=== PATIENT | female | born 1940 | race Caucasian/White ===

== ENCOUNTER 2016-07-03 12:45 | Emergency (ER) | payer OTHER ==
[~2016-07-03] VITALS: Ht 154.9 cm; Wt 93.0 kg
--- NOTE | 2016-07-03 14:23 | ED UPPER/LOWER EXTREMITY COMPL ---
History of Present Illness General Chief Complaint: Shoulder Injury Stated Complaint: RIGHT SHOULDER DISLOCATION Source: patient, family, old records Exam Limitations: no limitations Vital Signs & Intake/Output Vital Signs & Intake/Output Vital Signs Date Time Temp Pulse Resp B/P Pulse O2 O2 Flow FiO2 Ox Delivery Rate 07/03 1408 98 16 158/72 100 Nasal 2.0L Cannula 07/03 1338 95 16 172/77 97 Nasal 2.0L Cannula 07/03 1310 Room Air 07/03 1255 98.0 113 18 186/89 97 Room Air Allergies Uncoded Allergies: PCN (Intermediate, RASH 07/03/16) Triage Note: C/O R SHOULDER PAIN SINCE LAST PM, FELL LAST OM, TRIPPED OVER CLOTHES. SENT BY [facility], HAS CD WITH HER. HAS R SHOULDER DISLOCTION. Triage Nurses Notes Reviewed? yes Onset: Evening Duration: hour(s):, constant, continues in ED Timing: recent history Severity: severe Pain/Injury Location: Right: Shoulder. Method of Injury: direct blow, fall Modifying Factors: Improves With: immobilization, rest. Worsens With: movement. Associated Symptoms: GCS 15 since, stiffness LMP (ages 10-50): post menopausal : No Patient currently breastfeeds: No HPI: The evening prior to admission patient tripped over she from [facility] and fell onto her right shoulder. She complains of moderate to severe sharp pain nonradiating with limited range of motion. She denies other injury fever chills nausea vomiting diarrhea abdominal pain chest pain shortness of breath headache dysuria rash bleeding change in sensory function. Past History Travel History Traveled to [place] past 21 day No Medical History Any Pertinent Medical History? see below for history Cardiovascular: hypertension Cancer(s): SKIN CANCER Surgical History Surgical History: non-contributory Psychosocial History What is your primary language Romansh Tobacco Use: Never used ETOH Use: occasional use Family History Hx Contributory? No Review of Systems Review of Systems Constitutional: Reports: no symptoms. EENTM: Reports: no symptoms. Respiratory: Reports: no symptoms. Cardiovascular: Reports: no symptoms. Gastrointestinal/Abdominal: Reports: no symptoms. Genitourinary: Reports: no symptoms. Musculoskeletal: Reports: see HPI, joint pain. Skin: Reports: no symptoms. Neurological/Psychological: Reports: no symptoms. Hematologic/Endocrine: Reports: no symptoms. Immunological: Reports: no symptoms. All Other Systems: Reviewed and Negative Physical Exam Physical Exam General Appearance: well developed/nourished, alert, awake, anxious, mild distress, obese Head: atraumatic Eyes: Bilateral: PERRL, EOMI. Ears, Nose, Throat: normal pharynx, normal ENT inspection, hearing grossly normal Neck: normal inspection, supple Cardiovascular/Respiratory: regular rate/rhythm Peripheral Pulses: 4+ carotid (R), 4+ carotid (L), 2+ radial (R), 2+ radial (L) Back: normal inspection Shoulder Left: normal range of motion, normal inspection Shoulder Right: tenderness, evidence of injury, soft tissue tenderness, limited range of motion Elbow Left: normal range of motion, normal inspection Elbow Right: normal range of motion, normal inspection Hand Left: normal inspection, normal range of motion Hand Right: normal inspection, normal range of motion Upper Extremity Reflexes: 2+: bicep (L), tricep (L). Leg Left: normal range of motion, normal inspection Leg Right: normal range of motion, normal inspection Hip Left: normal range of motion, normal inspection Hip Right: normal range of motion, normal inspection Knee Left: normal range of motion, normal inspection Knee Right: normal range of motion, normal inspection Foot Left: normal inspection, normal range of motion Foot Right: normal inspection, normal range of motion Lower Extremity Reflexes: 2+: knee (R), knee (L), ankle (R), ankle (L). Neurologic/Tendon: normal sensation, normal motor functions, no pulse deficit Skin: intact, normal color, warm/dry Lymphatic: no anterior cervical henny Progress Differential Diagnosis: contusion, dislocation, fracture Plan of Care: Orders Procedure Date/time Status XRY-SHOULDER COMPLETE-RIGHT 07/03 1329 Active Diagnostic Imaging: Viewed by Me: Radiology Read. Discussed w/RAD: Radiology Read. Radiology Impression: satisfactory reduction Departure Departure Time of Disposition: 1515 Disposition: HOME OR SELF CARE Condition: Stable Clinical Impression Primary Impression: Anterior dislocation of right shoulder Qualifiers: Encounter type: initial encounter Qualified Code: S43.014A - Anterior dislocation of right humerus, initial encounter Secondary Impressions: Fall at home Qualifiers: Encounter type: initial encounter Qualified Codes: W19.XXXA - Unspecified fall, initial encounter; Y92.099 - Unspecified place in other non- institutional residence as the place of occurrence of the external cause Referrals: PATIENT HAS NO PRIMARY CARE DR (PCP/Family) Departure Forms: Customer Survey General Discharge Information Procedures Splinting Location: right shoulder Manual Alignment Performed: Yes Pre-Made Type: shoulder immobilizer Splint Applied By: splint applied by me Pre-Proc Neuro Vasc Exam: normal Post-Proc Neuro Vasc Exam: normal Joint Reduction Joint Reduction Site: shoulder (R) Conscious Sedation: conscious sedation, performed by me Reduction Attempts: 1 Pre-Procedure NV Exam: Yes Post-Procedure NV Exam: Yes Post Joint Reduction Film: joint reduced Procedural Sedation Sedation Type: moderate Indication: shoulder reduction Prior Complications: none ASA Classification: P1 Airway: large tongue/teeth Mallampati Classification: Class 2 Preparation: plan explained to patient, hospital consent signed, oximetry during procedure, IV access obtained, suction immediately avail, monitor and storage bin tender used Sedation: versed, etomidate Complications During/After Procedure: none Post Sedation Score: see sedation record I personally performed: sedation, procedure Intra-Service Time: 30 minutes or less
--- NOTE | 2016-07-03 14:38 | RADIOLOGY REPORT ---
EXAMINATION: XR SHOULDER, RIGHT CLINICAL INFORMATION: Status post reduction COMPARISON: None TECHNIQUE: 2 view of the right shoulder. FINDINGS: Normal location here. The humeral head does ride high in this may be consistent with impingement syndrome. No convincing evidence for an underlying fracture. IMPRESSION: Normal location. Findings may be consistent with impingement syndrome as described. Degenerative changes superiorly. Normal location on this study
== END 2016-07-03 15:35 ==
LOC: ERH 12:45
DX: S43.014A Anterior dislocation of right humerus, initial encounter (principal); W18.09XA Striking against other object with subsequent fall, initial encounter
CPT/HCPCS: 73030-RT; 96374; 96375